=== PATIENT | female | born 1960 | race Caucasian/White ===

== ENCOUNTER → 2017-01-07 | Outpatient (CLI) | payer BC ==
--- NOTE | 2017-01-08 11:33 | MM ---
Reason for exam: screening (asymptomatic). Last mammogram was performed 2 years and 8 months ago. History: Patient is postmenopausal. Family history of breast cancer in cousin at age 48. Physical Findings: A clinical breast exam by your physician is recommended on an annual basis and results should be correlated with mammographic findings. MG 3D Screening Mammo W/Cad Bilateral CC and MLO view(s) were taken. Prior study comparison: April 26, 2014, bilateral MG screening mammo w CAD. November 22, 2007, bilateral screening mammogram w/CAD. The breast tissue is almost entirely fat. There is no discrete abnormality. Benign axillary lymph nodes x 2. ASSESSMENT: Negative, BI-RAD 1 RECOMMENDATION: Routine screening mammogram of both breasts in 1 year.
== END | disposition home or self-care (01) ==
LOC: RADMAMWWP 08:07
PROVIDERS: ATTEND Family Medicine
DX: Z12.31 Encounter for screening mammogram for malignant neoplasm of breast (principal)
CPT/HCPCS: 77063; G0202

== ENCOUNTER → 2018-06-23 | Outpatient (CLI) | payer BC ==
--- NOTE | 2018-06-23 16:21 | BD ---
EXAMINATION TYPE: Axial Bone Density DATE OF EXAM: 06/23/2018 COMPARISON: NONE CLINICAL HISTORY: Height: 61 Weight: 169.6 FRAX RISK QUESTIONS: Alcohol (3 or more units per day): no Family History (Parent hip fracture): no Glucocorticoids (More than 3mos): no (Ex: prednisone, prednisolone, methylprednisolone, dexamethasone, and hydrocortisone). History of Fracture in Adulthood: yes Secondary Osteoporosis: 1. Type 1 Diabetes: no 2. Hyperthyroidism: no 3. Menopause before 45: no 4. Malnutrition: no 5. Chronic liver disease: no Rheumatoid Arthritis: no Current Tobacco Use: no RISK FACTORS HISTORY OF: Family History of Osteoporosis: yes Active: yes Diet low in dairy products/other sources of calcium: yes Postmenopausal woman: age 48 MEDICATIONS: omeprazole, hydrochlorothyazide, Prednisone or other steroids: steroid cream Additional History: EXAM MEASUREMENTS: Bone mineral densitometry was performed using the E-Blink System. Bone mineral density as measured about the Lumbar spine is: ----- L1-L4(G/cm2): 1.036 T Score Values are as follows: ----- L2: -1.8 ----- L3: -0.8 ----- L4: -1.3 ----- L1-L4: -1.2 Bone mineral density : baseline Bone mineral density about the R hip (g/cm2): 0.956 Bone mineral density about the L hip (g/cm2): 0.937 T Score values are as follows: -----R Neck: -0.6 -----L Neck: -0.7 -----R Total: 0.0 -----L Total: 0.2 Bone mineral density : baseline IMPRESSION: Osteopenia (T Score between -2.5 and -1). There is slightly increased risk of fracture and the patient may be considered for treatment. Re-Screen 2-5 years. NOTE: T-SCORE=SD OF THE YOUNG ADULT MEAN.
--- NOTE | 2018-06-24 11:23 | MM ---
Reason for exam: screening (asymptomatic). Last mammogram was performed 1 year and 6 months ago. History: Patient is postmenopausal. Family history of breast cancer in cousin at age 48. Physical Findings: A clinical breast exam by your physician is recommended on an annual basis and results should be correlated with mammographic findings. MG 3D Screening Mammo W/Cad Bilateral CC and MLO view(s) were taken. Prior study comparison: January 07, 2017, bilateral MG 3d screening mammo w/cad. April 26, 2014, bilateral MG screening mammo w CAD. There are scattered fibroglandular densities. No suspicious abnormality. No significant changes when compared with prior studies. ASSESSMENT: Negative, BI-RAD 1 RECOMMENDATION: Routine screening mammogram of both breasts in 1 year.
== END | disposition home or self-care (01) ==
LOC: RADMAMWWP 07:44
PROVIDERS: ATTEND Family Medicine
DX: Z12.31 Encounter for screening mammogram for malignant neoplasm of breast (principal); M85.80 Other specified disorders of bone density and structure, unspecified site; Z78.0 Asymptomatic menopausal state
CPT/HCPCS: 77063; 77067; 77080

== ENCOUNTER → 2018-06-24 | Outpatient (CLI) | payer BC ==
--- NOTE | 2018-06-24 19:56 | CONS ---
CONSULTATION DATE OF SERVICE: 06/24/2018 57-year-old lady who has been evaluated in the sleep center for possible obstructive sleep apnea-hypopnea syndrome. HISTORY OF PRESENT ILLNESS/SLEEP-WAKE EVALUATION: Patient usual sleep schedule from midnight to 2:00 a.m. until 5:10 a.m. Sometimes she has problems with falling asleep. She has TV set in bedroom, preferred to sleep on the side position. She snores and wakes up from sleep up to 5 times with nocturia and has episodes of gasping for air and opening her mouth during the sleep. Positive history of grinding teeth, heartburn. She wakes up tired in the morning, has difficulties to pay attention, has episodes of irritability. [place] Sleepiness Scale significantly increased to 10. PAST MEDICAL HISTORY: Positive for hypertension, acid reflux. PAST SURGICAL HISTORY: Partial hysterectomy, tonsillectomy, tubal ligation, cholecystectomy, surgery for trigger finger. MEDICATIONS: Hydrochlorothiazide, omeprazole, doxycycline, VESIcare, Senokot, , hydrocortisone, Topamax. SOCIAL HISTORY: Positive for smoking for about 25 pack years, quit about 20 years ago. Alcohol consumption occasional. FAMILY HISTORY: Hypertension, heart problems, sleep apnea, snoring, diabetes, acid reflux. REVIEW OF SYSTEMS: Awakenings from sleep, sleepiness during the day. PHYSICAL EXAM: GENERAL lady without distress. VITAL SIGNS BP 142/84, HR 78, RR 16, height 5 feet 0-1/2 inches, weight 170 pounds, BMI 32.6, temperature 98.0. Oxygen saturation room air 98%. HEENT PERRLA, EOMI, evaluation of oropharynx showed moderately low position of soft palate. NECK Supple, no JVD. Thyroid is not palpable. Neck 13-1/2 inches in circumference. LUNGS Clear to percussion and to auscultation. Good air exchange. No wheezing or rhonchi. HEART S1, S2 regular. No murmurs, gallops, or rubs. ABDOMEN Slightly obese. Soft and nontender. Bowel sounds are present. No organomegaly appreciated. EXTREMITIES No clubbing or cyanosis. 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 Cranial nerves 2 to 7 intact. There is no fasciculation or atrophy. noted. No focal deficits observed. IMPRESSION: 1. Snoring, multiple awakenings from sleep with nocturia, sleepiness during the day, obstructive sleep apnea-hypopnea syndrome. 2. Obesity, BMI 32.6. 3. Hypertension. 4. Acid reflux. 5. Status post partial hysterectomy. 6. Status post tonsillectomy. 7. Status post tubal ligation. 8. Status post cholecystectomy. PLAN: 1. Home sleep apnea test. 2. CPAP/BiPAP titration if sleep study confirms obstructive sleep apnea-hypopnea syndrome. 3. Preferable position during sleep on the side. 4. No driving if patient feels any sleepiness. 5. I will see patient for follow up visit to explain results of testing and following plan. Pilo Moore MD, PhD, FAASM Diplomat of [place] [employer] Specialties [place] [employer] of [employer] Medicine Cardiograph Operator of [facility] [place] MMODL / IJN: [id number] /
== END | disposition home or self-care (01) ==
LOC: SLEEP 15:22
PROVIDERS: ATTEND Internal Medicine
DX: G47.33 Obstructive sleep apnea (adult) (pediatric) (principal); R35.1 Nocturia; E66.9 Obesity, unspecified; K21.9 Gastro-esophageal reflux disease without esophagitis; I10 Essential (primary) hypertension; Z90.89 Acquired absence of other organs; Z98.51 Tubal ligation status; Z90.49 Acquired absence of other specified parts of digestive tract; Z68.32 Body mass index [BMI] 32.0-32.9, adult; Z90.710 Acquired absence of both cervix and uterus; Z79.52 Long term (current) use of systemic steroids; Z79.899 Other long term (current) drug therapy; Z87.891 Personal history of nicotine dependence
CPT/HCPCS: 99211

== ENCOUNTER → 2021-03-26 | Outpatient (CLI) | payer BC ==
--- NOTE | 2021-03-27 08:04 | BD ---
EXAMINATION TYPE: Axial Bone Density DATE OF EXAM: 03/26/2021 COMPARISON: 06/23/2018 CLINICAL HISTORY: Height: 59.7 IN Weight: 171 LBS FRAX RISK QUESTIONS: History of Fracture in Adulthood: LT ANKLE AGE 54 RISK FACTORS HISTORY OF: Family History of Osteoporosis: YES MOTHER Active: YES Diet low in dairy products/other sources of calcium: YES Postmenopausal woman: AGE 43 MEDICATIONS: Additional Medications: Additional History: CALCIUM, LOSARTAN, HCTZ, TOLTERIDINE,OMEPRAZOLE, EXAM MEASUREMENTS: Bone mineral densitometry was performed using the Poppin System. Bone mineral density as measured about the Lumbar spine is: ----- L1-L4(G/cm2): 1.093 T Score Values are as follows: ----- L2: -1.7 ----- L3: -0.5 ----- L4: -0.5 ----- L1-L4: -0.7 Bone mineral density has: Increased 4.6% since study of: 06/23/2018 Bone mineral density about the R hip (g/cm2): 0.905 Bone mineral density about the L hip (g/cm2): 0.867 T Score values are as follows: -----R Neck: -1.0 -----L Neck: -1.2 -----R Total: 0.3 -----L Total: 0.4 Bone mineral density has: Increased 2.7% since study of: 06/23/2018 IMPRESSION: No evidence for osteoporosis or osteopenia. NOTE: T-SCORE=SD OF THE YOUNG ADULT MEAN.
--- NOTE | 2021-03-27 09:05 | MM ---
Reason for exam: screening (asymptomatic). Last mammogram was performed 2 years and 9 months ago. History: Patient is postmenopausal. Family history of breast cancer in cousin at age 48. Physical Findings: A clinical breast exam by your physician is recommended on an annual basis and results should be correlated with mammographic findings. MG 3D Screening Mammo W/Cad Bilateral CC and MLO view(s) were taken. Prior study comparison: June 23, 2018, bilateral MG 3d screening mammo w/cad. January 07, 2017, bilateral MG 3d screening mammo w/cad. The breast tissue is heterogeneously dense. This may lower the sensitivity of mammography. Focal asymmetry upper outer left breast is stable. No significant changes when compared with prior studies. ASSESSMENT: Benign, BI-RAD 2 RECOMMENDATION: Routine screening mammogram of both breasts in 1 year.
== END | disposition home or self-care (01) ==
LOC: RADMAMWWP 15:43
PROVIDERS: ATTEND Family Medicine
DX: Z12.31 Encounter for screening mammogram for malignant neoplasm of breast (principal); M85.852 Other specified disorders of bone density and structure, left thigh; Z80.3 Family history of malignant neoplasm of breast; Z78.0 Asymptomatic menopausal state
CPT/HCPCS: 77063; 77067; 77080

== ENCOUNTER → 2022-01-03 | Outpatient (CLI) | payer BC ==
[~2022-01-03] MED LIST: REGADENOSON 0.4 MG/5 ML SYRINGE IV PRN
--- NOTE | 2022-01-03 12:47 | NM ---
EXAMINATION TYPE: NM stress lexiscan cardiolite DATE OF EXAM: 01/03/2022 COMPARISON: NONE HISTORY: R07.9 Chest pain R06.02 SOB TECHNIQUE: After the intravenous administration of 9.6 mCi Tc 99m Sestamibi - Cardiolite resting SPE CT images acquired 2.5hours minutes post injection. The patient received 0.4mg Lexiscan, 25.7 mCi Tc 99m Sestamibi - Stress images obtained 45minutes min utes post injection FINDINGS: Review of stress and rest SPECT images demonstrates no distinct stress-induced perfusion abnormality. There is a fixed defect lateral wall, cardiac apex and anterior wall. Gated analysis shows normal w all motion with an estimated left ventricular ejection fraction of 61 %. IMPRESSION: No scintigraphic evidence for reversible ischemia.
--- NOTE | 2022-01-06 08:21 | EST ---
EXERCISE STRESS AGE: 61 SEX: F HT: 5'1" WT: 168 lbs. PROTOCOL: Lexiscan STAGE: NA DURATION OF EXERCISE: NA HEART RATE REST: 63 BLOOD PRESSURE REST: 138/82 MAXIMUM HEART RATE ACHIEVED: 104 MAXIMUM BLOOD PRESSURE: 138/82 85% MPHR: 133 100% MPHR: 157 METS: NA INDICATIONS: Chest pain. CLINICAL INFORMATION: Baseline EKG showed sinus rhythm, nonspecific ST-T wave changes. Patient was given intravenous Lexiscan as per protocol; did not have chest pain or diagnostic ST-segment depression. CONCLUSIONS: 1. Negative stress test by EKG criteria. 2. Cardiolite portion of the stress test will be reported separately. MMODL / IJN: [id number] /
== END | disposition home or self-care (01) ==
LOC: RADNMMAIN 08:16
PROVIDERS: ATTEND Family Medicine
DX: R07.9 Chest pain, unspecified (principal); R06.02 Shortness of breath
CPT/HCPCS: 93017; 78452; A9500; J2785

== ENCOUNTER → 2024-07-11 | Outpatient (CLI) | payer MEDICARE | END | disposition home or self-care (01) | LOC: LABPRL 10:15 | PROVIDERS: ATTEND Family Medicine | DX: Z13.220 Encounter for screening for lipoid disorders (principal); Z13.228 Encounter for screening for other metabolic disorders; I10 Essential (primary) hypertension; E11.9 Type 2 diabetes mellitus without complications | CPT/HCPCS: 80053; 80061; 83036; 84443; 85025 ==

== ENCOUNTER → 2024-08-15 | Outpatient (CLI) | payer MEDICARE ==
--- NOTE | 2024-08-16 10:09 | MM ---
Reason for Exam: Screening (asymptomatic). Last mammogram was performed 3 year(s) and 5 month(s) ago. Patient History: Menarche at age 10. First Full-Term at age 21. Hysterectomy at age 48. Postmenopausal. Maternal cousin had breast cancer, age 48. Risk Values: Leslee 5 year model risk: 1.5%. NCI Lifetime model risk: 5.6%. Prior Study Comparison: 01/07/2017 Bilateral Screening Mammogram, [facility]. 06/23/2018 Bilateral Screening Mammogram, [facility]. 03/26/2021 Bilateral Screening Mammogram, [facility]. Tissue Density: The breasts are almost entirely fatty. Findings: Analyzed By CAD. Right breast: There is no suspicious group of microcalcifications or new suspicious mass. Benign-appearing calcifications right breast. Left breast: There is no suspicious group of microcalcifications or new suspicious mass. Overall Assessment: Benign, BI-RAD 2 Management: Screening Mammogram of both breasts in [address] [facility] will attempt to contact patient to return for supplemental views and ultrasound if indicated. Patient should continue monthly self-breast exams. A clinical breast exam by your physician is recommended on an annual basis. This exam should not preclude additional follow-up of suspicious palpable abnormalities. Note on Leslee scores and lifetime risk: 1. A Leslee score greater than 3% is considered moderate risk. If this is the case, consider specialist referral to assess eligibility for a risk reducing agent. 2. If overall lifetime risk for the development of breast cancer is 20% or higher, the patient may qualify for future screening with alternating mammogram and breast MRI. [facility], , 08/16/2024 10:07 AM. Electronically signed and approved by: Jacob Medina DO
== END | disposition home or self-care (01) ==
LOC: RADMAMWWP 14:53
PROVIDERS: ATTEND Family Medicine
DX: Z12.31 Encounter for screening mammogram for malignant neoplasm of breast
CPT/HCPCS: 77063; 77067

== ENCOUNTER 2024-09-14 16:00 | Observation (INO) | payer MEDICARE ==
--- NOTE | 2024-09-14 16:24 | ED ---
Abdominal Pain HPI - General Stated Complaint: abd pain Time Seen by Provider: 09/14/24 16:23 Source: patient, RN notes reviewed Mode of arrival: ambulatory Limitations: no limitations - History of Present Illness Initial Comments: 63-year-old female presented to ER with a chief complaint of abdominal pain and nausea. Patient states Thursday she has been having lower abdominal pain which has moved superiorly past couple of days. She endorses associated nausea and vomiting and has not been able to keep anything down. She states she will vomit water as well. She denies any diarrhea or constipation. She does report she started taking Mounjaro approximately 5 to 6 weeks ago. She denies any alcohol use. Denies any fevers or chills. No chest pain, shortness of breath or other complaints. - Related Data Home Medications Medication Instructions Recorded Confirmed ALPRAZolam [Xanax] 0.25 mg PO TID PRN 11/08/14 11/09/14 Bisoprolol-Hctz 5-6.25 mg [Ziac 1 each PO DAILY 11/08/14 11/09/14 5-6.25 MG] Desvenlafaxine Succinate [Pristiq 50 mg PO HS 11/08/14 11/09/14 ER] Nexium Otc 22.3 Mg 22.3 mg PO BID 11/08/14 11/09/14 Stool Softner 1 tab PO DAILY PRN 11/08/14 11/09/14 Xopenex Inhaler (Unknown Dose) 1 puff INHALATION DIRECTED PRN 11/08/14 11/09/14 Allergies Allergy/AdvReac Type Severity Reaction Status Date / Time Corticosteroids AdvReac Rash/Hives Verified 09/14/24 16:25 (Glucocorticoids) PERFUME Allergy Unknown Dyspnea Uncoded 09/14/24 16:25 Review of Systems ROS Statement: Those systems with pertinent positive or pertinent negative responses have been documented in the HPI. ROS Other: All systems not noted in ROS Statement are negative. General Exam - General Exam Comments Initial Comments: Visual Physical Exam Vital signs reviewed General: Well-appearing, nontoxic, no acute distress. Head: Normocephalic, atraumatic Eyes: PERRLA, EOMI ENT: Airway patent Chest: Nonlabored breathing Skin: No visual rash, normal skin tone Neuro: Alert and oriented 3 Musculoskeletal: No gross abnormalities General appearance: alert, in no apparent distress Eye exam: Present: scleral icterus (Mild) Respiratory exam: Present: normal lung sounds bilaterally. Absent: respiratory distress, wheezes, rales, rhonchi, stridor Cardiovascular Exam: Present: regular rate, normal rhythm, normal heart sounds. Absent: systolic murmur, diastolic murmur, rubs, gallop, clicks GI/Abdominal exam: Present: soft, tenderness (Mild epigastric), normal bowel sounds. Absent: distended, guarding, rebound, rigid Neurological exam: Present: alert, oriented X3, CN II-XII intact Skin exam: Present: warm, dry, intact, normal color. Absent: rash Course Vital Signs 09/14/24 09/14/24 09/14/24 16:20 18:51 21:41 Temperature 97.5 F L 98.4 F Pulse Rate 105 H 96 86 Respiratory 22 19 18 Rate Blood Pressure 141/77 155/93 132/86 O2 Sat by Pulse 96 97 97 Oximetry - Reevaluation(s) Reevaluation #1: 09/14/24 21:[address] Moss, [facility], for admission. Medical Decision Making - Medical Decision Making I performed the quick note portion of this chart. Electronically signed by Shannon Gil PA-C Was pt. sent in by a medical professional or institution (NIKHIL Raygoza, OSHA INSPECTOR, urgent care, hospital, or fdc...) When possible be specific @ -No Did you speak to anyone other than the patient for history (EMS, parent, family, police, friend...)? What history was obtained from this source @ -No Did you review nursing and triage notes (agree or disagree)? Why? @ -I reviewed and agree with nursing and triage notes Were old charts reviewed (outside hosp., previous admission, EMS record, old EKG, old radiological studies, urgent care reports/EKG's, fdc records)? Report findings @ -No old charts were reviewed Differential Diagnosis (chest pain, altered mental status, abdominal pain women, abdominal pain men, vaginal bleeding, weakness, fever, dyspnea, syncope, headache, dizziness, GI bleed, back pain, seizure, CVA, palpatations, mental health, musculoskeletal)? @ -Differential Abdominal Pain Women:Appendicitis, Cholecystitis, diverticulosis, ischemic bowel, pancreatitis, hepatitis, UTI, gastroenteritis, AAA, incarcerated hernia, bowel obstruction, constipation, inflammatory bowel, hepatitis, peptic ulcer disease, splenic infarction, perforated viscus, vulvitis, ovarian torsion, PID, kidney stone, placenta abruption, this is not meant to be an all-inclusive list EKG interpreted by me (3pts min.). @ -None done X-rays interpreted by me (1pt min.). @ -None done CT interpreted by me (1pt min.). @ -CT abdomen pelvis showing scattered colonic diverticula possibly with increased inflammation of the sigmoid colon correlate for mild diverticulitis. No other definitive process. Severe hepatic steatosis. Grade 1 anterolisthesis on L2 4on L5. No spondylolysis. U/S interpreted by me (1pt. min.). @ -None done What testing was considered but not performed or refused? (CT, X-rays, U/S, labs)? Why? @ -None What meds were considered but not given or refused? Why? @ -None Did you discuss the management of the patient with other professionals (professionals i.e. , PA, OSHA INSPECTOR, lab, RT, psych nurse, psychiatric social worker supervisor, analog ic design architect, teacher, strategic intelligence officer, dependency case manager)? Give summary @ -Yes, admission discussed [facility], Dr. Moss Was smoking cessation discussed for >3mins.? @ -No Was critical care preformed (if so, how long)? @ -No Were there social determinants of health that impacted care today? How? (Homelessness, low income, unemployed, alcoholism, drug addiction, transportation, low edu. Level, literacy, decrease access to med. care, retirement, rehab)? @ -No Was there de-escalation of care discussed even if they declined (Discuss DNR or withdrawal of care, Hospice)? DNR status @ -No What co-morbidities impacted this encounter? (DM, HTN, Smoking, COPD, CAD, Can cer, CVA, ARF, Chemo, Hep., AIDS, mental health diagnosis, sleep apnea, morbid obesity)? @ -None Was patient admitted / discharged? Hospital course, mention meds given and route, prescriptions, significant lab abnormalities, going to OR and other pertinent info. @ -Admitted. 63 year old female presenting to the ER with a chief complaint of abdominal pain. History and physical exam completed. Vitals stable. Patient in no signs of acute distress nontoxic-appearing. Exam remarkable for mild scleral icterus. Mild epigastric abdominal pain with normal bowel sounds. No rebound or guarding. Laboratory studies and CT abdomen pelvis will be obtained, patient is agreeable to this. Laboratory studies remarkable for transaminitis with a total bilirubin of 2.7, AST 1158, ALT 2114 and alk phos at 312. Hypokalemic at 3.4 sample is hemolyzed. Urinalysis showing 4+ ketones, small blood and 1+ bilirubin. CT abdomen pelvis performed showing possible mild diverticulitis and severe hepatic steatosis. Patient given IV fluids, Protonix and Zofran in the ER for symptom control. Findings concerning of hepatitis. Acute hepatitis panel ordered. Recent Mounjaro use may also be a component of transaminitis. Admission considered and discussed with [facility], Dr. Moss, for further evaluation and treatment of hepatitis and intractable nausea/vomiting. Maintenance fluids and antiemetics ordered. As patient is having no focal tenderness to left lower quadrant and no elevation in WBCs patient will not be started on antibiotics for possible diverticulitis, as I believe patient's symptoms are contributed from transaminitis. Upon reevaluation, patient resting comfortably on stretcher no s igns of acute distress. Results discussed with patient, all questions answered. Patient is agreeable for admission. Patient admitted in stable condition. Case discussed with ED attending Dr. Lau. Undiagnosed new problem with uncertain prognosis? @ -No Drug Therapy requiring intensive monitoring for toxicity (Heparin, Nitro, Insulin, Cardizem)? @ -No Were any procedures done? @ -No Diagnosis/symptom? @ -Hepatitis/intractable nausea vomiting Acute, or Chronic, or Acute on Chronic? @ -Acute Uncomplicated (without systemic symptoms) or Complicated (systemic symptoms)? @ -Complicated Side effects of treatment? @ -No Exacerbation, Progression, or Severe Exacerbation? @ -No Poses a threat to life or bodily function? How? (Chest pain, [place], [place], pneumonia, PE, COPD, DKA, ARF, appy, cholecystitis, CVA, Diverticulitis, Homicidal, Suicidal, threat to staff... and all critical care pts) @ -Yes - Lab Data Result diagrams: 09/14/24 18:12 09/14/24 18:12 Lab Results 10/16/24 10/16/24 10/16/24 Range/Units 18:12 18:12 18:12 WBC 8.8 (3.8-10.6) k/uL RBC 5.38 (3.80-5.40) m/uL Hgb 16.4 H (11.4-16.0) gm/dL Hct 49.8 H (34.0-46.0) % MCV 92.5 (80.0-100.0) fL MCH 30.4 (25.0-35.0) pg MCHC 32.9 (31.0-37.0) g/dL RDW 13.5 (11.5-15.5) % Plt Count 250 (150-450) k/uL MPV 8.7 Neutrophils % 87 % Lymphocytes % 7 % Monocytes % 4 % Eosinophils % 1 % Basophils % 0 % Neutrophils # 7.7 (1.3-7.7) k/uL Lymphocytes # 0.6 L (1.0-4.8) k/uL Monocytes # 0.4 (0-1.0) k/uL Eosinophils # 0.1 (0-0.7) k/uL Basophils # 0.0 (0-0.2) k/uL Sodium 138 (137-145) mmol/L Potassium 3.4 L (3.5-5.1) mmol/L Chloride 98 (98-107) mmol/L Carbon Dioxide 28 (22-30) mmol/L Anion Gap 12 mmol/L BUN 11 (7-17) mg/dL Creatinine 0.84 (0.52-1.04) mg/dL Est GFR (CKD-EPI)AfAm 84 (>60 ml/min/1.73 sqM) Est GFR (CKD-EPI)NonAf 73 (>60 ml/min/1.73 sqM) Glucose 95 (74-99) mg/dL Plasma Lactic Acid Guy 1.1 (0.7-2.0) mmol/L Calcium 10.5 H (8.4-10.2) mg/dL Total Bilirubin 2.7 H (0.2-1.3) mg/dL AST 1158 H (14-36) U/L ALT 2114 H (4-34) U/L Alkaline Phosphatase 312 H (38-126) U/L Total Protein 7.5 (6.3-8.2) g/dL Albumin 5.1 H (3.5-5.0) g/dL Amylase 46 (30-110) U/L Lipase 132 (23-300) U/L Urine Color Urine Appearance (Clear) Urine pH (5.0-8.0) Ur Specific [place] (1.001-1.035) Urine Protein (Negative) Urine Glucose (UA) (Negative) Urine Ketones (Negative) Urine Blood (Negative) Urine Nitrite (Negative) Urine Bilirubin (Negative) Urine Urobilinogen (<2.0) mg/dL Ur Leukocyte Esterase (Negative) Urine RBC (0-5) /hpf Ur Squamous Epith Cells (0-4) /hpf Hyaline Casts (0-2) /lpf Urine Mucus (None) /hpf 09/14/24 Range/Units 18:51 WBC (3.8-10.6) k/uL RBC (3.80-5.40) m/uL Hgb (11.4-16.0) gm/dL Hct (34.0-46.0) % MCV (80.0-100.0) fL MCH (25.0-35.0) pg MCHC (31.0-37.0) g/dL RDW (11.5-15.5) % Plt Count (150-450) k/uL MPV Neutrophils % % Lymphocytes % % Monocytes % % Eosinophils % % Basophils % % Neutrophils # (1.3-7.7) k/uL Lymphocytes # (1.0-4.8) k/uL Monocytes # (0-1.0) k/uL Eosinophils # (0-0.7) k/uL Basophils # (0-0.2) k/uL Sodium (137-145) mmol/L Potassium (3.5-5.1) mmol/L Chloride (98-107) mmol/L Carbon Dioxide (22-30) mmol/L Anion Gap mmol/L BUN (7-17) mg/dL Creatinine (0.52-1.04) mg/dL Est GFR (CKD-EPI)AfAm (>60 ml/min/1.73 sqM) Est GFR (CKD-EPI)NonAf (>60 ml/min/1.73 sqM) Glucose (74-99) mg/dL Plasma Lactic Acid Guy (0.7-2.0) mmol/L Calcium (8.4-10.2) mg/dL Total Bilirubin (0.2-1.3) mg/dL AST (14-36) U/L ALT (4-34) U/L Alkaline Phosphatase (38-126) U/L Total Protein (6.3-8.2) g/dL Albumin (3.5-5.0) g/dL Amylase (30-110) U/L Lipase (23-300) U/L Urine Color Yellow Urine Appearance Clear (Clear) Urine pH 5.5 (5.0-8.0) Ur Specific [place] 1.028 (1.001-1.035) Urine Protein 1+ H (Negative) Urine Glucose (UA) Negative (Negative) Urine Ketones 4+ H (Negative) Urine Blood Small H (Negative) Urine Nitrite Negative (Negative) Urine Bilirubin 1+ H (Negative) Urine Urobilinogen 3.0 (<2.0) mg/dL Ur Leukocyte Esterase Negative (Negative) Urine RBC 17 H (0-5) /hpf Ur Squamous Epith Cells 3 (0-4) /hpf Hyaline Casts 3 H (0-2) /lpf Urine Mucus Rare H (None) /hpf - Radiology Data Radiology results: report reviewed, image reviewed Disposition Clinical Impression: Hepatitis, Intractable nausea and vomiting Disposition: ADMITTED IP TO THIS [facility] Condition: Stable Time of Disposition: 21:22
[2024-09-14 18:21] LABS: Basophils % (A) 0 %; Eosinophils # (A) 0.1 k/uL (0-0.7); Eosinophils % (A) 1 %; HCT 49.8 % (34.0-46.0); HGB 16.4 gm/dL (11.4-16.0); Lymphocytes # (A) 0.6 k/uL (1.0-4.8); Lymphocytes % (A) 7 %; MCH 30.4 pg (25.0-35.0); MCHC 32.9 g/dL (31.0-37.0); MCV 92.5 fL (80.0-100.0); Mean Platelet Volume 8.7; Monocytes # (A) 0.4 k/uL (0-1.0); Monocytes % (A) 4 %; Neutrophils # (A) 7.7 k/uL (1.3-7.7); Neutrophils % (A) 87 %; Platelet Count 250 k/uL (150-450); RBC 5.38 m/uL (3.80-5.40); RDW 13.5 % (11.5-15.5); WBC 8.8 k/uL (3.8-10.6)
[2024-09-14 18:47] LABS: African American GFR (CKD) 84 (>60 ml/min/1.73 sqM); Albumin 5.1 g/dL (3.5-5.0); Alkaline Phosphatase 312 U/L (38-126); Amylase 46 U/L (30-110); Anion Gap 12 mmol/L; Blood Urea Nitrogen 11 mg/dL (7-17); Calcium 10.5 mg/dL (8.4-10.2); Carbon Dioxide 28 mmol/L (22-30); Chloride 98 mmol/L (98-107); Glucose 95 mg/dL (74-99); Lipase 132 U/L (23-300); Non-African American GFR(CKD) 73 (>60 ml/min/1.73 sqM); Sodium 138 mmol/L (137-145); Total Bilirubin 2.7 mg/dL (0.2-1.3); Total Protein 7.5 g/dL (6.3-8.2)
[2024-09-14 19:06] LABS: Potassium 3.4 mmol/L (3.5-5.1)
[2024-09-14 19:07] LABS: ALT 2114 U/L (4-34); AST 1158 U/L (14-36)
[2024-09-14 19:12] LABS: Appearance,Urine Clear (Clear); Bilirubin,Urine 1+ (Negative); Blood,Urine Small (Negative); Color,Urine Yellow; Glucose,Urine (UA) Negative (Negative); Hyaline Casts,Urine 3 /lpf (0-2); Leukocyte Esterase,Urine Negative (Negative); Mucus,Urine Rare /hpf; Nitrite,Urine Negative (Negative); PH, Urine 5.5 (5.0-8.0); Protein,Urine 1+ (Negative); RBC,Urine 17 /hpf (0-5); Specific Gravity,Urine 1.028 (1.001-1.035); Squamous Epithelial Cell,Urine 3 /hpf (0-4)
[2024-09-14] MEDS: SODIUM CHLORIDE 0.9% 1,000 ML IV STA (19:29)
[2024-09-14 19:32] LABS: Ketones,Urine 4+ (Negative)
[2024-09-14] MEDS: ONDANSETRON 4 MG/2 ML VIAL IVP STA (20:02)
[2024-09-14] MEDS: PANTOPRAZOLE 40 MG/10 ML VIAL IVP STA (20:05)
--- NOTE | 2024-09-14 20:41 | CT ---
EXAMINATION TYPE: CT abdomen pelvis w con CT DLP: 886.1 mGycm, Automated exposure control for dose reduction was used. DATE OF EXAM: 09/14/2024 8:32 PM COMPARISON: None. CLINICAL INDICATION: Female, 63 years old with history of abdominal pain and vomiting; Abdominal pain and vomiting. TECHNIQUE: Axial CT abdomen pelvis w con;Sagittal and coronal reformats were created on a separate w orkstation. Contrast used:100ml mL of Isovue 300 with IV Contrast, (none if empty) Oral contrast used: without Oral Contrast (none if empty) FINDINGS: LOWER CHEST: Unremarkable ABDOMEN LIVER: Diffusely hypoattenuating parenchyma. GALLBLADDER AND BILE DUCTS: Gallbladder is surgically absent with mild intrahepatic and extra hepatic biliary dilatation likely physiologic and a postcholecystectomy change. No evidence of choledocholit hiasis. PANCREAS: Unremarkable. SPLEEN: Unremarkable. ADRENAL GLANDS: Unremarkable. KIDNEYS AND URETERS: No evidence of hydronephrosis or renal calculus. The ureters are unremarkable. PELVIS BLADDER: Unremarkable REPRODUCTIVE: The uterus is surgically absent. The ovaries are not definitively visualized. ABDOMEN & PELVIS STOMACH AND BOWEL: No evidence of bowel obstruction. The appendix is normal. PERITONEUM/RETROPERITONEUM: No evidence of pneumoperitoneum or free fluid. VASCULATURE: No evidence of aortic aneurysm. MUSCULOSKELETAL: No acute osseous abnormalities, grade 1 anterolisthesis of L2 4 on L5. No spondyloly sis. LYMPH NODES: No gross evidence for lymphadenopathy. SOFT TISSUE/ABDOMINAL WALL: Unremarkable IMPRESSION: 1. Scattered colonic diverticula possibly with increased inflammation in the sigmoid colon correlate for mild diverticulitis. No definitive other acute abdominal process. 2. Severe hepatic steatosis. 3. Grade 1 anterolisthesis of L2 4 on L5. No spondylolysis. [facility], , 09/14/2024 8:38 PM
[2024-09-14] MEDS ORDERED: NALOXONE 0.4 MG/ML 1 ML VIAL IV PRN (21:22)
[2024-09-14] MEDS ORDERED: IBUPROFEN 400 MG TAB PO PRN (21:22)
[2024-09-14] MEDS: SODIUM CHLORIDE 0.9% 1,000 ML IV SCH (22:50)
[2024-09-15] MEDS: PANTOPRAZOLE 40 MG/10 ML VIAL IV SCH (08:20)
--- NOTE | 2024-09-15 08:30 | P.HPIM ---
History of Present Illness Chief complaint: Abdominal pain History of present illness; 63-year-old female with a past medical history of hypertension and anxiety presents for abdominal pain and nausea. Patient reports 3 days ago she started having lower abdominal pain which has slowly moved more superiorly over the last couple of days. Patient reports she has had similar abdominal pain in the past most recently 10 years ago. She reports before that she would have this similar abdominal pain and at that time was found to have an inflamed gallbladder so had a cholecystectomy. She reports the abdominal pain that travels from the lower abdomen to the upper abdomen continued even after having her gallbladder removed, but as stated she has not felt that pain in approximately 10 years until now. Patient admits to nausea and vomiting, has not been able to keep anything down including vomiting water sometimes as well. Patient denies diarrhea or constipation. Patient reports she started taking Mounjaro approximately 5 to 6 weeks ago. Patient denies any alcohol use. Family history: Noncontributory Surgical history: Cholecystectomy, hysterectomy, and tonsillectomy. Social history: Former smoker, no alcohol or drug use. Initial lab work from the ER was significant for WBC 8.8, hemoglobin 16.4, MCV 92.5, sodium 138, potassium 3.4, T. bili 2.7, AST 1000 158, ALT 2114, alkaline phosphatase 312, albumin 5.1, amylase 46, lipase 132, UA significant for 4+ ketones, 17 urine RBC, and [address] ABD: Scattered colonic diverticula possibly with increased inflammation in the sigmoid colon, no other acute abdominal process, severe hepatic steatosis, and grade 1 anterolisthesis of L2 4 on L5. No spondylosis. Patient admitted to internal medicine service REVIEW OF SYSTEMS: CONSTITUTIONAL: No fever, no malaise, no fatigue. HEENT: No recent visual problems or hearing problems. Denied any sore throat. CARDIOVASCULAR: No chest pain, orthopnea, PND, no palpitations, no syncope. PULMONARY: No shortness of breath, no cough, no hemoptysis. GASTROINTESTINAL: No diarrhea, admits to nausea, vomiting, and abdominal pain. NEUROLOGICAL: No headaches, no weakness, no numbness. HEMATOLOGICAL: Denies any bleeding or petechiae. GENITOURINARY: Denies any burning micturition, frequency, or urgency. MUSCULOSKELETAL/RHEUMATOLOGICAL: Denies any joint pain, swelling, or any muscle pain. ENDOCRINE: Denies any polyuria or polydipsia. The rest of the 14-point review of systems is negative. PHYSICAL EXAMINATION: GENERAL: The patient is alert and oriented x3, not in any acute distress. Well developed, well nourished. HEENT: Pupils are round and equally reacting to light. EOMI. No scleral icterus. No conjunctival pallor. Normocephalic, atraumatic. No pharyngeal erythema. No thyromegaly. CARDIOVASCULAR: S1 and S2 present. No murmurs, rubs, or gallops. PULMONARY: Chest is clear to auscultation b/l, no wheezing or crackles. ABDOMEN: Soft, nontender, nondistended, normoactive bowel sounds. No palpable organomegaly. MUSCULOSKELETAL: No joint swelling or deformity. EXTREMITIES: No cyanosis, clubbing, or pedal edema. NEUROLOGICAL: Gross neurological examination did not reveal any focal deficits. SKIN: No rashes. Assessment & Plan: Acute: #Hepatitis of unknown etiology: Potentially viral versus medication side effect Hepatitis panel ordered, follow-up results Patient started Mounjaro 5 to 6 weeks ago, but connection to hepatitis is not established in the literature Ordered GGT, antimitochondrial antibody, STEPHANIE, anti-smooth muscle antibody, PT/INR, direct bilirubin, and liver/bile duct ultrasound. Follow-up on results. Patient reports did not be a drinker Continue to follow CMP, pending ESR Continue to monitor Chronic: #Anxiety Continue home alprazolam 0.25 mg p.o. 3 times daily as needed and Pristiq ER 50 mg p.o. at bedtime #GERD: Continue Protonix 40 mg IV daily #Type 2 diabetes: Continue home metformin 500 mg p.o. daily, and Mounjaro 5 mg SQ TU #Hypertension: Continue home medication #Insomnia: Continue home melatonin 5 mg p.o. at bedtime as needed F: NS 75 cc/h E: None N: Regular diet A: Normally ambulates unassisted at home DVT ppx: Lovenox 40 mg SQ daily GI ppx: Protonix 40 mg IV daily Dispo: Pending medical course Charisse Vernon MD PGY-1 FM Dictation was produced using [employer] dictation software. please excuse any grammatical, word or spelling errors. Past Medical History Past Medical History: Diabetes Mellitus, Hypertension History of Any Multi-Drug Resistant Organisms: None Reported Past Surgical History: Cholecystectomy, Hysterectomy, Tonsillectomy Past Anesthesia/Blood Transfusion Reactions: No Reported Reaction Smoking Status: Former smoker Past Alcohol Use History: None Reported Past Drug Use History: None Reported Medications and Allergies Home Medications Medication Instructions Recorded Confirmed Type ALPRAZolam [Xanax] 0.25 mg PO BID PRN 11/08/14 09/15/24 History Albuterol Sulfate [Albuterol 2 puff PO RT-QID PRN 09/15/24 09/15/24 History Sulfate Hfa] Calcium Carbonate [Calcium] 600 mg PO BID 09/15/24 09/15/24 History Losartan Potassium [Cozaar] 100 mg PO DAILY 09/15/24 09/15/24 History Melatonin 5 mg PO HS PRN 09/15/24 09/15/24 History Omeprazole 20 mg PO BID 09/15/24 09/15/24 History Tirzepatide [Mounjaro] 5 mg SQ TU 09/15/24 09/15/24 History Tolterodine ER [Detrol LA] 4 mg PO HS 09/15/24 09/15/24 History hydroCHLOROthiazide [Hydrodiuril] 25 mg PO DAILY 09/15/24 09/15/24 History metFORMIN HCL [Glucophage] 500 mg PO DAILY 09/15/24 09/15/24 History Allergies Allergy/AdvReac Type Severity Reaction Status Date / Time Corticosteroids AdvReac Rash/Hives Verified 09/15/24 08:49 (Glucocorticoids) PERFUME Allergy Unknown Dyspnea Uncoded 09/15/24 08:49 Physical Exam Vitals: Vital Signs Temp Pulse Pulse Resp BP BP Pulse Ox 09/15/24 07:29 97.7 F 80 18 127/81 98 09/15/24 01:47 98.1 F 85 14 126/66 94 L 09/14/24 22:47 98.0 F 88 15 123/84 97 09/14/24 21:41 86 18 132/86 97 09/14/24 18:51 98.4 F 96 19 155/93 97 09/14/24 16:20 97.5 F L 105 H 22 141/77 96 Intake and Output 09/14/24 09/15/24 09/15/24 22:59 06:59 14:59 Other: # Voids 3 Weight 71.214 kg Results CBC & Chem 7: 09/14/24 18:12 09/14/24 18:12 Labs: Abnormal Lab Results - Last 24 Hours (Table) 09/14/24 09/14/24 09/14/24 Range/Units 18:12 18:12 18:51 Hgb 16.4 H (11.4-16.0) gm/dL Hct 49.8 H (34.0-46.0) % Lymphocytes # 0.6 L (1.0-4.8) k/uL Potassium 3.4 L (3.5-5.1) mmol/L Calcium 10.5 H (8.4-10.2) mg/dL Total Bilirubin 2.7 H (0.2-1.3) mg/dL AST 1158 H (14-36) U/L ALT 2114 H (4-34) U/L Alkaline Phosphatase 312 H (38-126) U/L Albumin 5.1 H (3.5-5.0) g/dL Urine Protein 1+ H (Negative) Urine Ketones 4+ H (Negative) Urine Blood Small H (Negative) Urine Bilirubin 1+ H (Negative) Urine RBC 17 H (0-5) /hpf Hyaline Casts 3 H (0-2) /lpf Urine Mucus Rare H (None) /hpf Thrombosis Risk Factor Assmnt - Choose All That Apply Any of the Below Risk Factors Present?: Yes Each Risk Factor Represents 2 Points: Age 61-74 years Thrombosis Risk Factor Assessment Total Risk Factor Score: 2 Thrombosis Risk Factor Assessment Level: Low Risk
[2024-09-15 08:48] LABS: Hepatitis A Antibody IgM Nonreactive (Nonreactive); Hepatitis B Core IgM Nonreactive (Nonreactive); Hepatitis B Surface Antigen Nonreactive (Nonreactive); Hepatitis C IgG Antibody Nonreactive (Nonreactive)
[2024-09-15] MEDS ORDERED: ACETAMINOPHEN TAB 325 MG TAB PO PRN (09:37)
[2024-09-15] MEDS ORDERED: ALPRAZolam 0.25 MG TAB PO PRN (11:05)
[2024-09-15] MEDS ORDERED: ALBUTEROL NEBULIZED 2.5 MG/3 ML INHALATION PRN (11:05)
[2024-09-15 11:43] LABS: Glucose,Whole Blood 75 mg/dL (70-110)
[2024-09-15] MEDS: metFORMIN 500 MG TAB PO SCH (13:35)
[2024-09-15] MEDS: ENOXAPARIN 40 MG/0.4 ML SYRINGE SQ SCH (13:35)
[2024-09-15] MEDS: MELATONIN 5 MG TABLET PO PRN (13:36)
[2024-09-15 16:36] LABS: Glucose,Whole Blood 69 mg/dL (70-110)
[2024-09-15] MEDS: DEXTROSE 50% SYRINGE 50 ML IVP STA (17:01)
[2024-09-15 17:21] LABS: AST 264 U/L (14-36); African American GFR (CKD) >90 (>60 ml/min/1.73 sqM); Albumin 3.7 g/dL (3.5-5.0); Albumin/Globulin Ratio 1.9; Alkaline Phosphatase 207 U/L (38-126); Anion Gap 7 mmol/L; Bilirubin,Unconjugated 0.5 mg/dL (0.0-1.1); Blood Urea Nitrogen 11 mg/dL (7-17); Carbon Dioxide 25 mmol/L (22-30); Chloride 106 mmol/L (98-107); Globulin 1.9 g/dL; Glucose 73 mg/dL (74-99); Non-African American GFR(CKD) 80 (>60 ml/min/1.73 sqM); Potassium 3.3 mmol/L (3.5-5.1); Sodium 138 mmol/L (137-145); Total Protein 5.6 g/dL (6.3-8.2)
[2024-09-15 17:39] LABS: INR 0.9 (<1.2); Prothrombin Time 10.2 sec (10.0-12.5)
[2024-09-15 17:41] LABS: ALT 1046 U/L (4-34)
[2024-09-15 17:41] LABS: Glucose,Whole Blood 187 mg/dL (70-110)
--- NOTE | 2024-09-15 18:28 | US ---
EXAMINATION TYPE: US liver DATE OF EXAM: 09/15/2024 COMPARISON: CT 09/14/2024 CLINICAL INDICATION: Female, 63 years old with history of severly elevated lft's; Elevated LFTs. Hx c holecystectomy TECHNIQUE: Grayscale and color Doppler imaging of the right upper quadrant was performed. 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 Exam done intercostally. Pancreas: Visualized portion appears echogenic Liver: Increased attenuation, decreased visualization of vessels suggestive of fatty infiltrate Gallbladder: Surgically absent Evidence for sonographic Carvajal's sign: No CBD: mildly dilated at 1.2cm Right Kidney: wnl as best seen today. IMPRESSION: 1. No evidence for acute process. 2. Hepatic steatosis. [facility], , 09/15/2024 6:26 PM
[2024-09-15 20:08] LABS: Glucose,Whole Blood 105 mg/dL (70-110)
[2024-09-15] MEDS: OXYBUTYNIN XL 5 MG TAB.ER.24 PO SCH (20:58)
[2024-09-15] MEDS: CALCIUM CARBONATE 500 MG CHEWABLE PO SCH (20:58)
[2024-09-15] MEDS ORDERED: LACTULOSE 20 GM/30 ML CUP PO ONE (21:16)
[2024-09-15] MEDS: ONDANSETRON 4 MG/2 ML VIAL IVP PRN (22:57)
[2024-09-16 01:01] LABS: Glucose,Whole Blood 92 mg/dL (70-110)
[2024-09-16 03:39] LABS: GGT 266 U/L (0-38); Iron 41 UG/DL (50-170); Total Iron Binding Capacity 277 UG/DL (228-460)
[2024-09-16 06:29] LABS: Glucose,Whole Blood 94 mg/dL (70-110)
[2024-09-16 08:32] VITALS: RESP 20; TEMP 98.1
[2024-09-16 10:38] LABS: HGB 12.7 g/dL (12.0-15.0); MCH 29.5 pg (27.0-32.0); MCHC 32.6 g/dL (32.0-37.0); MCV 90.5 FL (80.0-97.0); Mean Platelet Volume 11.2 FL (9.5-12.2); NRBC Per 100 WBC 0 X 10*3/uL (0.00-0.01); Platelet Count 221 X 10*3/uL (140-440); RBC 4.31 X 10*6/uL (4.10-5.20); RDW 13.3 % (11.5-14.5); WBC 6.57 X 10*3/uL (4.50-10.00)
[2024-09-16 10:51] LABS: ALT 1052 U/L (8-44); AST 646 U/L (13-35); Albumin 3.7 g/dL (3.8-4.9); Albumin/Globulin Ratio 2.18 Ratio (1.60-3.17); Alkaline Phosphatase 380 U/L (41-126); BUN/Creat Ratio 9.12 Ratio (12.00-20.00); Blood Urea Nitrogen 7.3 mg/dL (9.0-27.0); Calcium 8.8 mg/dL (8.7-10.3); Chloride 106 mmol/L (96-109); Globulin 1.7 g/dL (1.6-3.3); Glucose 106 mg/dL (70-110); Sodium 143 mmol/L (135-145); Total Bilirubin 1.9 mg/dL (0.3-1.2); Total Protein 5.4 g/dL (6.2-8.2)
[2024-09-16 11:05] LABS: Glucose,Whole Blood 77 mg/dL (70-110)
[2024-09-16 11:30] LABS: INR 0.96 sec (0.93-1.11); Prothrombin Time 10.4 sec (9.9-11.9)
[2024-09-16 13:48] VITALS: BP 149/79; PULSE 68
--- NOTE | 2024-09-16 17:39 | P.DS ---
Providers Date of admission: 09/14/24 21:23 Attending physician: Da Moss Primary care physician: Evon Bolivar Hospital Course: Discharge Diagnosis: Hepatitis of unknown etiology Anxiety GERD Type 2 diabetes Hypertension Insomnia Hospital Course: History of present illness; 63-year-old female with a past medical history of hypertension and anxiety presents for abdominal pain and nausea. Patient reports 3 days ago she started having lower abdominal pain which has slowly moved more superiorly over the last couple of days. Patient reports she has had similar abdominal pain in the past most recently 10 years ago. She reports before that she would have this similar abdominal pain and at that time was found to have an inflamed gallbladder so had a cholecystectomy. She reports the abdominal pain that travels from the lower abdomen to the upper abdomen continued even after having her gallbladder removed, but as stated she has not felt that pain in approximately 10 years until now. Patient admits to nausea and vomiting, has not been able to keep anything down including vomiting water sometimes as well. Patient denies diarrhea or constipation. Patient reports she started taking Mounjaro approximately 5 to 6 weeks ago. Patient denies any alcohol use. Family history: Noncontributory Surgical history: Cholecystectomy, hysterectomy, and tonsillectomy. Social history: Former smoker, no alcohol or drug use. Initial lab work from the ER was significant for WBC 8.8, hemoglobin 16.4, MCV 92.5, sodium 138, potassium 3.4, T. bili 2.7, AST 1000 158, ALT 2114, alkaline phosphatase 312, albumin 5.1, amylase 46, lipase 132, UA significant for 4+ ketones, 17 urine RBC, and [address] ABD: Scattered colonic diverticula possibly with increased inflammation in the sigmoid colon, no other acute abdominal process, severe hepatic steatosis, and grade 1 anterolisthesis of L2 4 on L5. No spondylosis. While admitted the hospital the patient underwent several lab tests to discover the etiology of her elevated LFTs and hepatic steatosis including testing for copper, STEPHANIE, AMA, ASMA, GGT, iron profile and viral hepatitis panel. All of those test came back negative with the exception of GGT which was found to be elevated at 266. During the patient's hospital stay her initial AST and ALT were 1158 and 2114 respectively which both decreased to 264 and 1046 respectively. Patient also received a liver/gallbladder ultrasound which showed no evidence for acute process and did show hepatic steatosis. On day of discharge patient reported feeling back to her normal self with the exception of some nausea so the patient was prescribed Zofran 8 mg p.o. every 8 hours with a total of 30 tabs. Patient is medically and hemodynamically stable for discharge. Patient is discharged to home. 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 Pt seen and examined at bedside: Patient reports feeling much better, still having some nausea, but excited at the prospect of going home today. Vital signs reveiwed and stable: General: non toxic, no distress, appears at stated age, normal weight Derm: no unusual rashes/lesions, warm Head: atraumatic, normocephalic, symmetric Eyes: EOMI, no lid lag, anicteric sclera, pupils equal round reactive to light ENT: Nose and ears atraumatic Neck: No cervical lymphadenopathy, trachea midline, supple Mouth: no lip lesion, mucus membranes moist Cardiovascular: S1S2 reg, no murmur, positive dorsalis pedis pulse bilateral, no edema Lungs: Decreased air entry bilaterally, no rhonchi, no rales, no accessory muscle use Abdominal: soft, nontender to palpation, no guarding Ext: muscle strength 5 out of 5 in all 4 extremities grossly, no gross muscle atrophy, no contractures, Neuro: CN II-XI grossly intact, no gross focal neuro deficits Psych: Alert, oriented, appropriate affect A total of greater than 30 minutes were spent preparing this complex discarge summary. Patient was discharged on 09/16/2024, 13: 20. Patient Condition at Discharge: Stable Plan - Discharge Summary New Discharge Prescriptions: New ondansetron HCL [Zofran] 8 mg PO Q8HR #30 tab Continue ALPRAZolam [Xanax] 0.25 mg PO BID PRN PRN Reason: Anxiety Tolterodine ER [Detrol LA] 4 mg PO HS Omeprazole 20 mg PO BID Melatonin 5 mg PO HS PRN PRN Reason: Insomnia Calcium Carbonate [Calcium] 600 mg PO BID metFORMIN HCL [Glucophage] 500 mg PO DAILY hydroCHLOROthiazide [Hydrodiuril] 25 mg PO DAILY Tirzepatide [Mounjaro] 5 mg SQ TU Losartan Potassium [Cozaar] 100 mg PO DAILY Albuterol Sulfate [Albuterol Sulfate Hfa] 2 puff PO RT-QID PRN PRN Reason: Shortness Of Breath Discharge Medication List ALPRAZolam [Xanax] 0.25 mg PO BID PRN 11/08/14 [History] Albuterol Sulfate [Albuterol Sulfate Hfa] 2 puff PO RT-QID PRN 09/15/24 [History] Calcium Carbonate [Calcium] 600 mg PO BID 09/15/24 [History] Losartan Potassium [Cozaar] 100 mg PO DAILY 09/15/24 [History] Melatonin 5 mg PO HS PRN 09/15/24 [History] Omeprazole 20 mg PO BID 09/15/24 [History] Tirzepatide [Mounjaro] 5 mg SQ TU 09/15/24 [History] Tolterodine ER [Detrol LA] 4 mg PO HS 09/15/24 [History] hydroCHLOROthiazide [Hydrodiuril] 25 mg PO DAILY 09/15/24 [History] metFORMIN HCL [Glucophage] 500 mg PO DAILY 09/15/24 [History] ondansetron HCL [Zofran] 8 mg PO Q8HR #30 tab 09/16/24 [Rx] Follow up Appointment(s)/Referral(s): Evon Bolivar MD [Primary Care Provider] - 1-2 days (Office is closed at time of discharge. Please call for follow-up appointment.) Radha Herman MD [STAFF PHYSICIAN] - 1 Week (Please call for follow-up appointment.) Activity/Diet/Wound Care/Special Instructions: Diet: Liquids for now until you are comfortable with slowly trying to progress to solid food. Activity: No restrictions Discharge Disposition: HOME SELF-CARE
[2024-09-20] MEDS ORDERED: NON FORMULARY DRUG (Tirzepatide [Mounjaro] 5 MG/0.5 ML Pen.Injctr) SQ SCH (11:05)
== END 2024-09-16 15:20 | disposition home or self-care (01) ==
LOC: EC 16:00 → 4SSUR 21:23
PROVIDERS: ADMIT Hospitalist; ATTEND Hospitalist
DX: K75.9 Inflammatory liver disease, unspecified (principal); F41.9 Anxiety disorder, unspecified; K21.9 Gastro-esophageal reflux disease without esophagitis; E11.9 Type 2 diabetes mellitus without complications; I10 Essential (primary) hypertension; G47.00 Insomnia, unspecified; Z90.49 Acquired absence of other specified parts of digestive tract; Z79.84 Long term (current) use of oral hypoglycemic drugs; Z79.899 Other long term (current) drug therapy; Z87.891 Personal history of nicotine dependence; Z90.710 Acquired absence of both cervix and uterus
CPT/HCPCS: 96376 ×2; 96372 ×2; 96375 ×2; 96374; 99285; 36415; 80053 ×3; 80074; 85652; 82150; 82248; 82525; 82977; 83540; 83550; 83605; 83690; 85025; 85027; 85610 ×2; 81001; 83516 ×2; 86038; 76705; 74177; G0378 ×3; J2405 ×2; J1650 ×2; Q9967; J2470 ×3